=== PATIENT | male | born 1995 | race African-American/Black ===

== ENCOUNTER 2017-07-12 01:53 | Emergency (ER) | payer OTHER ==
[~2017-07-12] VITALS: Ht 190.5 cm; Wt 81.6 kg
[2017-07-12 01:55] VITALS: BP 146/88
== END 2017-07-12 03:45 | disposition left against medical advice (07) ==
LOC: ER 02:03
DX: R51 Headache (principal); Z53.21 Procedure and treatment not carried out due to patient leaving prior to being seen by health care provider

== ENCOUNTER 2017-07-12 18:19 | Emergency (ER) | payer OTHER ==
[~2017-07-12] VITALS: Ht 193 cm; Wt 83.0 kg
[2017-07-13] MEDS ORDERED: BACITRACIN ZINC OINT UDPKT TOP ONE (01:45)
[2017-07-13] MEDS ORDERED: TETANUS, DIPHTHERIA, PERTUSSIS VAC/PF 0.5ML (>7YR OLD) IM ONE (01:45)
[2017-07-13 01:50] VITALS: BP 123/77
== END 2017-07-13 17:16 | disposition home or self-care (01) ==
LOC: ER 07-13 07:59
DX: S01.81XA Laceration without foreign body of other part of head, initial encounter (principal); W19.XXXA Unspecified fall, initial encounter; Y93.89 Activity, other specified; Y92.89 Other specified places as the place of occurrence of the external cause; Y99.8 Other external cause status
CPT/HCPCS: 90471; 90715; 99283; X7700

== ENCOUNTER 2017-09-26 22:54 | Emergency (ER) | payer OTHER ==
[~2017-09-26] VITALS: Ht 172.7 cm; Wt 68.0 kg
[2017-09-27] MEDS ORDERED: HYDROCODONE/ACETAMINOPHEN 10/325MG TABLET PO ONE (02:15)
[2017-09-27 03:10] VITALS: BP 125/65
== END 2017-09-27 03:12 | disposition home or self-care (01) ==
LOC: ER 22:54
DX: S31.030A Puncture wound without foreign body of lower back and pelvis without penetration into retroperitoneum, initial encounter (principal); S31.813A Puncture wound without foreign body of right buttock, initial encounter; S71.131A Puncture wound without foreign body, right thigh, initial encounter; W34.010A Accidental discharge of airgun, initial encounter; Y93.89 Activity, other specified; Y92.89 Other specified places as the place of occurrence of the external cause; Y99.8 Other external cause status
CPT/HCPCS: 72170; 73552; 74010; 99284